=== PATIENT | male | born 2000 ===

== ENCOUNTER 2023-05-18 12:42 | Emergency (ER) | payer OTHER ==
[2023-05-18] MEDS ORDERED: Ketorolac Tromethamine 30 MG/ML VIAL ONE (14:21)
== END 2023-05-18 14:30 ==
LOC: ERS 12:42
DX: S20.211A Contusion of right front wall of thorax, initial encounter (principal); M25.511 Pain in right shoulder; W06.XXXA Fall from bed, initial encounter
CPT/HCPCS: 96372; J1885